=== PATIENT | female | born 1980 ===

== ENCOUNTER 2018-03-29 19:07 | Emergency (ER) | payer SELFPAY ==
[2018-03-29 19:18] VITALS: BP 124/76; PULSE 88; RESP 14; TEMP 98.6; O2SAT 97
[2018-03-29] MEDS ORDERED: Albuterol-Ipratrop 3 mg / 0.5 (3 ml) UD INH STA (21:26)
--- NOTE | 2018-03-29 21:43 | ED PDOC ---
HPI: Influenza Time Seen by Provider: 03/29/18 21:22 Chief Complaint: Flu-like Symptoms Chief Complaint (Provider): Flu-like Symptoms History Per: Patient Exam Limitations: no limitations Onset/Duration Of Symptoms: Days (x8) Additional complaint(s):: Patient is a 38 y/o female with no significant PMHx who presents to the ED for evaluation of a tactile fever and cough ongoing for the past eight days. In addition, patient states she has been experiencing headaches, moderate body aches, and SOB. Patient denies any sick contacts. Patient reports to have last taken Tylenol at 17:00 today. Of note, patient has not received flu vaccine. PCP: None Provided Past Medical History Reviewed: Historical Data, Nursing Documentation, Vital Signs Vital Signs: Last Vital Signs Temp 98.6 F 03/29/18 19:16 Pulse 88 03/29/18 19:16 Resp 14 03/29/18 19:16 BP 124/76 03/29/18 19:16 Pulse Ox 97 03/29/18 19:16 - Medical History PMH: No Chronic Diseases - Surgical History Surgical History: No Surg Hx - Family History Family History: States: No Known Family Hx - Immunization History Hx Influenza Vaccination: No - Home Medications Home Medications: Ambulatory Orders Medication Instructions Recorded Ibuprofen [Motrin] 600 mg PO Q8 PRN #21 tab 03/29/18 Oseltamivir Cap [Tamiflu] 75 mg PO BID #9 cap 03/29/18 Promethazine/Codeine 5 ml PO Q12 PRN #100 ml 03/29/18 [Codeine/Promethazine 10 MG/5 Ml-6.25 MG/5 Ml] RX: Albuterol HFA [Ventolin HFA 90 2 puff IH [id number] PRN #1 in 03/29/18 mcg/actuation (8 g)] - Allergies Allergies/Adverse Reactions: Allergies Allergy/AdvReac Type Severity Reaction Status Date / Time No Known Allergies Allergy Verified 03/29/18 19:18 Review of Systems ROS Statement: Except As Marked, All Systems Reviewed And Found Negative Constitutional: Positive for: Fever (tactile), Other (moderate body aches) Respiratory: Positive for: Cough, Shortness of Breath. Negative for: Wheezing Neurological: Positive for: Headache Physical Exam - Reviewed Nursing Documentation Reviewed: Yes Vital Signs Reviewed: Yes - Physical Exam Appears: Positive for: No Acute Distress Head Exam: Positive for: ATRAUMATIC, NORMAL INSPECTION, NORMOCEPHALIC Skin: Positive for: Normal Color, Warm, DRY Eye Exam: Positive for: Normal appearance, EOMI, PERRL, Conjunctival injection (mild) Neck: Positive for: Normal, Painless ROM, Supple Cardiovascular/Chest: Positive for: Regular Rate, Rhythm. Negative for: Murmur Respiratory: Positive for: Normal Breath Sounds, Other (bronchospastic cough). Negative for: Wheezing Gastrointestinal/Abdominal: Positive for: Normal Exam, Soft. Negative for: Tenderness Extremity: Positive for: Normal ROM. Negative for: Pedal Edema, Deformity Neurologic/Psych: Positive for: Alert, Oriented. Negative for: Motor/Sensory Deficits Medical Decision Making Medical Decision Making: Time: 2124 Plan: Urine CXR Duoneb 2 ml INH Toradol 30 mg IM Peak Flow Pre/Post Tx .Pre/Post Treatment Influenza A B Scribe Attestation: Documented by Corbin Garvey, acting as a scribe for ASHLYN Yo. Provider Scribe Attestation: All medical record entries made by the Scribe were at my direction and personally dictated by me. I have reviewed the chart and agree that the record accurately reflects my personal performance of the history, physical exam, medical decision making, and the department course for this patient. I have also personally directed, reviewed, and agree with the discharge instructions and disposition. - ECG O2 Sat by Pulse Oximetry: 97 (RA) Pulse Ox Interpretation: Normal - Progress ED Course And Treament: influenza a positive albuterol neb x 1 dose cxr: wnl Disposition - Clinical Impression Clinical Impression: Influenza - Patient ED Disposition Is Patient to be Admitted: No - Disposition Disposition: Routine/Home Disposition Time: 22:29 Condition: FAIR Prescriptions: RX: Albuterol HFA [Ventolin HFA 90 mcg/actuation (8 g)] 2 puff IH [id number] PRN #1 in PRN Reason: Cough Ibuprofen [Motrin] 600 mg PO Q8 PRN #21 tab PRN Reason: Pain, Moderate (4-7) Oseltamivir Cap [Tamiflu] 75 mg PO BID #9 cap Promethazine/Codeine [Codeine/Promethazine 10 MG/5 Ml-6.25 MG/5 Ml] 5 ml PO Q12 PRN #100 ml PRN Reason: Cough Instructions: Flu, Adult (DC) Forms: [facility] ED School/Work Excuse Print Language: FRISIAN
--- NOTE | 2018-03-30 10:39 | RAD ---
Date of service: 03/29/2018 HISTORY: cough COMPARISON: No prior. TECHNIQUE: Chest PA and lateral FINDINGS: LUNGS: No active pulmonary disease. PLEURA: No significant pleural effusion identified. No pneumothorax apparent. CARDIOVASCULAR: No aortic atherosclerotic calcification present. Normal cardiac size. No pulmonary vascular congestion. OSSEOUS STRUCTURES: No significant abnormalities. VISUALIZED UPPER ABDOMEN: Normal. OTHER FINDINGS: None. IMPRESSION: No active disease.
== END 2018-03-29 23:10 | disposition home or self-care (01) ==
LOC: H.ER 19:07
DX: J11.1 Influenza due to unidentified influenza virus with other respiratory manifestations (principal)
CPT/HCPCS: 71046; 81025; 87804; 96372; 99282; J1885